=== PATIENT | male | born 1975 | race Two or more races ===

== ENCOUNTER 2021-12-21 21:22 | Emergency (ER) | payer SELFPAY ==
[~2021-12-21] VITALS: Ht 167.6 cm; Wt 65.8 kg
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
[2021-12-21] MEDS ORDERED: ACETAMINOPHEN 325 MG TABLET ONE (22:13)
[2021-12-21] MEDS ORDERED: LIDOCAINE 1% INJ 50 ML MDV IJ ONE (22:30)
[2021-12-21] MEDS ORDERED: ACETAMINOPHEN 325 MG TABLET PO ONE (22:30)
--- NOTE | 2021-12-21 23:00 | NUR ---
PATIENT TAKEN TO CT VIA [facility]
[2021-12-22] MEDS ORDERED: LIDOCAINE 1%-EPI 1:100,000 20 ML VIAL ONE (00:14)
[2021-12-22] MEDS ORDERED: IBUP-1953 PO (00:38)
--- NOTE | 2021-12-22 01:14 | NUR ---
Patient discharged to home in stable condition. Written and verbal after care instructions given. Patient verbalizes understanding of instruction.
[2021-12-22 01:18] VITALS: BP 124/90
== END 2021-12-22 01:18 | disposition home or self-care (01) ==
LOC: ER 21:27
DX: S01.81XA Laceration without foreign body of other part of head, initial encounter (principal); V49.59XA Passenger injured in collision with other motor vehicles in traffic accident, initial encounter; Y93.89 Activity, other specified; Y92.413 State road as the place of occurrence of the external cause; Y99.8 Other external cause status
CPT/HCPCS: 99284; 70450; 12013; 70486; J3490

== ENCOUNTER 2021-12-27 16:32 | Emergency (ER) | payer SELFPAY ==
[~2021-12-27] VITALS: Ht 167.6 cm; Wt 63.5 kg
[~2021-12-27 16:32] MED LIST: IBUP-1953 PO
[2021-12-27 16:50] VITALS: BP 117/70
--- NOTE | 2021-12-27 17:26 | NUR ---
Patient discharged to home in stable condition. Written and verbal after care instructions given. Patient verbalizes understanding of instruction.
== END 2021-12-27 17:26 | disposition home or self-care (01) ==
LOC: ER 16:36
DX: S01.81XD Laceration without foreign body of other part of head, subsequent encounter (principal); X58.XXXD Exposure to other specified factors, subsequent encounter